=== PATIENT | female | born 1995 | race Caucasian/White ===

== ENCOUNTER 2020-10-15 07:26 | Emergency (ER) | payer OTHER ==
[~2020-10-15] VITALS: Ht 165.1 cm; Wt 68.0 kg
[2020-10-15 07:40] VITALS: BP 115/70
[2020-10-15 07:55] LABS: COVID AG,FIA SOURCE NASAL SWAB
== END 2020-10-15 09:12 ==
LOC: EMS 07:29
DX: U07.1 COVID-19 (principal); R05 Cough
CPT/HCPCS: 99283